=== PATIENT | female | born 1985 | race Caucasian/White ===

== ENCOUNTER 2019-10-09 10:58 | Emergency (ER) | payer OTHER ==
[2019-10-09] MEDS ORDERED: LACTATED RINGERS 1,000 ML IV ONE (11:33)
--- NOTE | 2019-10-09 11:44 | ED Headache ---
General Chief Complaint: Head/Cervical Problems Stated Complaint: HEADACHE Nursing Triage Note: headache for 4 days. States has no hx of headaches. Is constant and wraps around head. Is worse when she presses on her head. Has hx of high blood pressure. Nursing Sepsis Screen: No Definite Risk Source: patient Exam Limitations: no limitations History of Present Illness Date Seen by Provider: Oct 09, 2019 Time Seen by Provider: 11:24 Initial Comments Patient presents ER by private conveyance from home with chief complaint of a severe, worst headache of her life that starts in her neck and occiput wrapping around to the front in her eyes. It is constant, non-throbbing and hurts to touch her head. She has photophobia without phonophobia. No history of migraines or headaches. No fever chills cough shortness of breath. She does have nausea without vomiting. She is diabetic on metformin only and does not check her blood sugars. She has a history of hypertension on lisinopril and so she has not been fastidious about taking the medicine. She has been off of it for the past 3 days but started again today. She also has a history of high cholesterol but no history of coronary disease stroke. She's not having any weakness numbness double vision or blurry vision. She's not had any falls loss of control of her bowel or bladder or anesthesia/paresthesias. She's had her tubes tied in the past as well as hysterectomy several years ago. She's had her tonsils and adenoids out. Tylenol and ibuprofen have not helped with her headache. She did finally get some sleep with Benadryl and Excedrin last night however it did not change her headache. She has had poor sleep secondary to the pain. She's also had a sensation of rushing water through her ears since the headache started. Family medical history includes hypertension and diabetes but no early-onset coronary disease strokes or other significant history. [facility] with [facility] in [place] and has not seen anybody else about her headache since it started. Allergies and Home Medications Allergies Coded Allergies: No Known Drug Allergies (Unverified , 10/09/19) Home Medications Amoxicillin/Potassium Clav 1 Each Tablet, 1 EACH PO BID Prescribed by: ÁNGELA LESLIE on 10/09/19 1417 Butalb/Acetaminophen/Caffeine 1 Each Capsule, 1 EACH PO Q6H PRN for PAIN- BREAKTHROUGH Prescribed by: ÁNGELA LESLIE on 10/09/19 1416 Naproxen 500 Mg Tablet, 500 MG PO BID PRN for PAIN-BREAKTHROUGH Prescribed by: ÁNGELA LESLIE on 10/09/19 141 Promethazine HCl 25 Mg Tablet, 25 MG PO Q6H PRN for NAUSEA/VOMITING Prescribed by: ÁNGELA LESLIE on 10/09/19 1416 Patient Home Medication List Home Medication List Reviewed: Yes Review of Systems Review of Systems Constitutional: No chills, No diaphoresis Eyes: See HPI; Denies Blindness, Denies Blurred Vision, Denies Drainage; Photophobia Ears, Nose, Mouth, Throat: see HPI (tinnitus bilateral); denies ear pain Respiratory: No cough, No phlegm, No short of breath Cardiovascular: No chest pain, No edema, No Hx of Intervention, No palpitations Gastrointestinal: No abdominal pain, No constipation, No diarrhea; loss of appetite, nausea Genitourinary: No discharge, No dysuria, No frequency, No hematuria : No (hysterectomy) Musculoskeletal: No back pain; neck pain Skin: No pruritus, No rash Psychiatric/Neurological: Denies Anxiety, Denies Depressed All Other Systems Reviewed Negative Unless Noted: Yes Past Flpfnsj-Ptpomn-Utffka Hx Patient Social History Alcohol Use: Occasionally Uses Recreational Drug Use: No Smoking Status: Current Everyday Smoker Type Used: Cigarettes Recent Foreign Travel: No Contact w/Someone Who Travel: No Recent Infectious Disease Expo: No Physical Exam Vital Signs Vital Signs - First Documented 10/09/19 11:21 Temp 37.2 Pulse 83 Resp 16 B/P (MAP) 131/82 (98) Pulse Ox 99 Capillary Refill : Less Than 3 Seconds Height, Weight, BMI Height: '" Weight: lbs. oz. kg; BMI Method: General Appearance: WD/WN, mild distress HEENT: PERRL/EOMI, normal ENT inspection, TMs normal; No pharynx normal (oral mucosa is very dry) Neck: full range of motion, normal inspection Cardiovascular: normal peripheral pulses, regular rate, rhythm Respiratory: lungs clear, normal breath sounds, no respiratory distress, no accessory muscle use Back: normal inspection, other (midline vertebral tenderness C2 through C5 without paraspinous muscle spasm) Extremities: normal range of motion, non-tender, normal inspection, no pedal edema Psychiatric: alert, oriented x 3 (GCS 15) Crainal Nerves: normal hearing, normal speech, PERRL (4 mm bilateral, brisk) Coordination/Gait: normal finger to nose, normal gait Motor/Sensory: no motor deficit, no sensory deficit Reflexes: 2+ Bicep (R), 2+ Bicep (L), 2+ Knee (R); 3+ Knee (L) Skin: normal color, warm/dry Progress/Results/Core Measures Results/Orders Lab Results Laboratory Tests Test 10/09/19 11:32 10/09/19 11:41 Range/Units Glucometer 102 70-110 MG/DL White Blood Count 9.6 4.3-11.0 10^3/uL Red Blood Count 4.30 L 4.35-5.85 10^6/uL Hemoglobin 13.0 11.5-16.0 G/DL Hematocrit 38 35-52 % Mean Corpuscular Volume 89 80-99 FL Mean Corpuscular Hemoglobin 30 25-34 PG Mean Corpuscular Hemoglobin Concent 34 32-36 G/DL Red Cell Distribution Width 12.4 10.0-14.5 % Platelet Count 314 130-400 10^3/uL Mean Platelet Volume 10.1 7.4-10.4 FL Neutrophils (%) (Auto) 69 42-75 % Lymphocytes (%) (Auto) 23 12-44 % Monocytes (%) (Auto) 5 0-12 % Eosinophils (%) (Auto) 3 0-10 % Basophils (%) (Auto) 1 0-10 % Neutrophils # (Auto) 6.6 1.8-7.8 X 10^3 Lymphocytes # (Auto) 2.2 1.0-4.0 X 10^3 Monocytes # (Auto) 0.5 0.0-1.0 X 10^3 Eosinophils # (Auto) 0.2 0.0-0.3 10^3/uL Basophils # (Auto) 0.1 0.0-0.1 10^3/uL Erythrocyte Sedimentation Rate 4 0-20 MM/HR Sodium Level 137 135-145 MMOL/L Potassium Level 3.9 3.6-5.0 MMOL/L Chloride Level 103 98-107 MMOL/L Carbon Dioxide Level 23 21-32 MMOL/L Anion Gap 11 5-14 MMOL/L Blood Urea Nitrogen 16 7-18 MG/DL Creatinine 0.75 0.60-1.30 MG/DL Estimat Glomerular Filtration Rate > 60 BUN/Creatinine Ratio 21 Glucose Level 104 70-105 MG/DL Calcium Level 9.2 8.5-10.1 MG/DL Corrected Calcium 8.5-10.1 MG/DL Total Bilirubin 0.5 0.1-1.0 MG/DL Aspartate Amino Transf (AST/SGOT) 26 5-34 U/L Alanine Aminotransferase (ALT/SGPT) 27 0-55 U/L Alkaline Phosphatase 50 40-136 U/L C-Reactive Protein 0.07 <0.50 MG/DL Total Protein 7.3 6.4-8.2 GM/DL Albumin 4.7 H 3.2-4.5 GM/DL My Orders Orders - ÁNGELA LESLIE Accucheck Stat ONCE (10/09/19 11:30) Ct Angio Head/Neck (10/09/19 11:30) Ed Iv/Invasive Line Start (10/09/19 11:33) Lactated Ringers (Lr 1000 Ml Iv Solution (10/09/19 11:33) Ondansetron Injection (Zofran Injectio (10/09/19 11:45) Fentanyl Injection (Sublimaze Injection (10/09/19 11:45) Cbc With Automated Diff (10/09/19 11:33) Comprehensive Metabolic Panel (10/09/19 11:33) Crp Fs (10/09/19 11:33) Erythrocyte Sedimentation Rate (10/09/19 11:33) Iohexol Injection (Omnipaque 350 Mg/Ml 1 (10/09/19 12:00) Received Contrast (Hold Metformin- Contr (10/09/19 12:00) Sodium Chloride Flush (Catheter Flush Sy (10/09/19 12:00) Ns (Ivpb) (Sodium Chloride 0.9% Ivpb Bag (10/09/19 12:00) Hydromorphone Injection (Dilaudid Inject (10/09/19 12:45) Promethazine Injection (Phenergan Injec (10/09/19 14:30) Diphenhydramine Injection (Benadryl Inje (10/09/19 14:30) Ketorolac Injection (Toradol Injection) (10/09/19 14:30) Dexamethasone Injection (Decadron Inject (10/09/19 14:30) Medications Given in ED Current Medications Medications Dose Ordered Sig/Ileana Route Start Time Stop Time Status Last Admin Dose Admin Dexamethasone Sodium Phosphate 7 mg ONCE ONCE IV 10/09/19 14:30 10/09/19 14:31 DC 10/09/19 14:41 7 MG Diphenhydramine HCl 25 mg ONCE ONCE IVP 10/09/19 14:30 10/09/19 14:31 DC 10/09/19 14:41 25 MG Fentanyl Citrate 50 mcg ONCE ONCE IVP 10/09/19 11:45 10/09/19 11:46 MN 10/09/19 11:49 50 MCG Hydromorphone HCl 0.5 mg ONCE ONCE IV 10/09/19 12:45 10/09/19 12:46 MN 10/09/19 12:59 0.5 MG Iohexol 75 ml ONCE ONCE IV 10/09/19 12:00 10/09/19 12:01 MN 10/09/19 12:32 75 ML Ketorolac Tromethamine 30 mg ONCE ONCE IVP 10/09/19 14:30 10/09/19 14:31 MN 10/09/19 14:41 30 MG Lactated Ringer's 1,000 ml @ 0 mls/hr Q0M ONCE IV 10/09/19 11:33 10/09/19 11:36 MN 10/09/19 11:48 999 MLS/HR Ondansetron HCl 4 mg ONCE ONCE IVP 10/09/19 11:45 10/09/19 11:46 MN 10/09/19 11:49 4 MG Promethazine HCl 25 mg ONCE ONCE IVP 10/09/19 14:30 10/09/19 14:31 MN 10/09/19 14:41 25 MG Sodium Chloride 10 ml NEEDED PRN IV 10/09/19 12:00 10/09/19 12:32 10 ML Sodium Chloride 100 ml ONCE ONCE IV 10/09/19 12:00 10/09/19 12:01 MN 10/09/19 12:32 80 ML Vital Signs/I&O 10/09/19 11:21 Temp 37.2 Pulse 83 Resp 16 B/P (MAP) 131/82 (98) Pulse Ox 99 Blood Pressure Mean: 98 FSBG Bedside Testing Finger Stick Blood Glucose: 102 Progress Progress Note #1: Time: 11:41 Progress Note Novel onset of severe headache that is global and causing some neurologic symptoms of photophobia, new onset tinnitus and left-sided hyperreflexia. Small concern for catastrophic diagnoses includes subarachnoid hemorrhage, cerebral ischemia. Plan to get a CT angiogram of the head and neck which will allow us to look at a noncontrasted view for bleeds and then a contrasted view of the arteries. Plan to get labs. Accu-Chek was 102. Clinically she appears dehydrated despite not being tachycardic. Plan to give her a liter of lactated Ringer's and check labs. She urinated before she came but she denies any urinary symptoms and I doubt we can associate UTI with her current presentation anyway. Progress Note #2: Time: 14:08 Progress Note Imaging unremarkable. Labs unremarkable. She has some sinusitis and it probably would not hurt to do Augmentin as well as antihistamines to treat a sinus headache which is her most likely diagnosis. We are going to give her an IV dose of Toradol Benadryl and Phenergan. Plan to put her out on Augmentin. She is in agreement with the plan. Progress Note #3: Time: 15:14 Progress Note On reevaluation patient says her nausea is gone and her headache is significantly improved. She still receiving her Phenergan infusion. His symptoms this done were going to allow her to go home with Fioricet, Phenergan, Naprosyn and Augmentin. She can use Flonase and [id number] antihistamines. The patient is in agreement with this plan. Diagnostic Imaging Diagonstic Imaging: CT (angiogram) Plain Films/CT/US/NM/MRI: head (and neck) Comments NAME: [facility] REC#: [id number] PT STATUS: REG ER : 1985 PHYSICIAN: ÁNGELA LESLIE MD ADMIT DATE: 10/09/19/ER FS Draft Date of Exam:10/09/19 CT ANGIO HEAD/NECK PROCEDURE: CT angiography of the head and CT angiography of the neck with and without contrast. TECHNIQUE: Contiguous noncontrast images were obtained from the skull base through the vertex. After intravenous contrast administration, helical CT angiography of the neck was performed. Source data was reformatted into 3D MIP projections. Delayed post contrast acquisition was also obtained. Auto Exposure Controls were utilized during the CT exam to meet ALARA standards for radiation dose reduction. INDICATION: Severe headache and left-sided hyperreflexia. COMPARISON: No prior studies are available for comparison. FINDINGS: The head CT demonstrates the ventricles and sulci to be within normal limits. No sulcal effacement or midline shift is identified. No acute intra-axial or extra-axial hemorrhage is detected. Delayed post contrast imaging is without abnormal enhancing lesion. There is some mild mucosal thickening of the ethmoid air cells. There is also significant mucosal thickening in the bilateral maxillary sinuses, greatest on the right. The CT angiographic portion of the study demonstrates the bilateral common carotid arteries to be widely patent. The carotid bifurcations are unremarkable. The bilateral internal carotid arteries are widely patent. There is normal perfusion in the anterior, middle, and posterior cerebral artery territories. No filling defects are seen. No large branch occlusion is identified. No definite aneurysm is detected. The basilar artery is widely patent. The vertebral arteries are codominant and unremarkable. IMPRESSION: 1. Essentially unremarkable CT angiogram of the head and neck. No large branch occlusion, thromboembolism, or evidence of aneurysm is identified. 2. Paranasal sinus disease, greatest involving the right maxillary sinus. Dictated on workstation # [id number] Dict: 10/09/19 1252 Trans: 10/09/19 1303 [id number] Interpreted by: KELLEN BRAY MD Electronically signed by: Reviewed: Reviewed by Me Departure Impression Primary Impression: Sinus headache Disposition: 01 HOME, SELF-CARE Condition: Stable Departure-Patient Inst. Decision time for Depature: 14:09 Referrals: NO,LOCAL PHYSICIAN (PCP/Family) Primary Care Physician Patient Instructions: Sinus Headache (DC) Add. Discharge Instructions: While there is nothing dangerous going on with your headache there does seem to be some inflammation in your sinuses which could be consistent with an infection. Plan to put you on Zyrtec/cetirizine 1 tablet daily. This is OTC You can use 1-2 tablets of Benadryl in addition to naproxen 500 mg twice daily. A prescription for naproxen has been sent in. Do not combine this with ibuprofen, Advil, Aleve. Tylenol 650 mg every 8 hours as necessary for headache or pain. Zebutal 1 tablet every 6 hours as necessary for breakthrough pain. Phenergan 1 tablet every 6 hours as necessary for nausea. Augmentin 1 tablet twice a day for the next 10 days for sinusitis. Flonase, fluticasone nasal steroid. Apply 1 puff to each nostril twice daily for the next week. This is available [id number]. Return to the nearest ER if you begin to experience visual changes, weakness or falling, infusion or other worrisome symptoms such as fever. All discharge instructions reviewed with patient and/or family. Voiced understanding. Scripts Amoxicillin/Potassium Clav (Augmentin 875-125 Tablet) 1 Each Tablet 1 EACH PO BID for 10 Days, #20 TAB 0 Refills Prov: ÁNGELA LESLIE 10/09/19 Naproxen (Naprosyn) 500 Mg Tablet 500 MG PO BID PRN for PAIN-BREAKTHROUGH for 7 Days, #14 TAB 0 Refills Prov: ÁNGELA LESLIE 10/09/19 Promethazine HCl (Promethazine Tablet) 25 Mg Tablet 25 MG PO Q6H PRN for NAUSEA/VOMITING, #15 TAB 0 Refills Prov: ÁNGELA LESLIE 10/09/19 Butalb/Acetaminophen/Caffeine (Zebutal 50-325-40 mg Capsule) 1 Each Capsule 1 EACH PO Q6H PRN for PAIN-BREAKTHROUGH, #15 CAP 0 Refills Prov: ÁNGELA LESLIE 10/09/19 Work/School Note: Work Release Form Date Seen in the Emergency Department: Oct 09, 2019 Return to Work: Oct 13, 2019 Restrictions: No Restrictions ÁNGELA LESLIE Oct 09, 2019 11:44
[2019-10-09] MEDS ORDERED: fentaNYL INJECTION 100 MCG/2 ML AMP IVP ONE (11:45)
[2019-10-09] MEDS ORDERED: ONDANSETRON 4 MG/2 ML (SDV) Z0FRAN IVP ONE (11:45)
[2019-10-09 11:53] LABS: BASOPHILS # (AUTO) 0.1 10^3/uL (0.0-0.1); BASOPHILS % (AUTO) 1 % (0-10); EOSINOPHILS # (AUTO) 0.2 10^3/uL (0.0-0.3); EOSINOPHILS % (AUTO) 3 % (0-10); HEMATOCRIT 38 % (35-52); LYMPHOCYTES # (AUTO) 2.2 X 10^3 (1.0-4.0); LYMPHOCYTES % (AUTO) 23 % (12-44); MEAN CORPUSCULAR HEMOGLOBIN 30 PG (25-34); MEAN CORPUSCULAR HGB CONC 34 G/DL (32-36); MEAN CORPUSCULAR VOLUME 89 FL (80-99); MEAN PLATELET VOLUME 10.1 FL (7.4-10.4); MONOCYTES # (AUTO) 0.5 X 10^3 (0.0-1.0); MONOCYTES % (AUTO) 5 % (0-12); NEUTROPHILS # (AUTO) 6.6 X 10^3 (1.8-7.8); NEUTROPHILS % (AUTO) 69 % (42-75); PLATELET COUNT 314 10^3/uL (130-400); RED CELL DISTRIBUTION WIDTH 12.4 % (10.0-14.5); WHITE BLOOD COUNT 9.6 10^3/uL (4.3-11.0)
[2019-10-09] MEDS ORDERED: IOHEXOL 350 MG/ML 100 ML (OMNIPAQUE 350) VIAL IV ONE (12:00)
[2019-10-09] MEDS ORDERED: CATHETER FLUSH 10 ML SYR IV PRN (12:00)
[2019-10-09] MEDS ORDERED: NS 100 ML (IVPB) BAG IV ONE (12:00)
[2019-10-09] MEDS ORDERED: HOLD METFORMIN - RECEIVED CONTRAST 20 ML VIAL IV SCH (12:00)
[2019-10-09 12:08] LABS: ERYTHROCYTE SEDIMENTATION RATE 4 MM/HR (0-20)
[2019-10-09 12:12] LABS: ALANINE AMINOTRANSFERASE 27 U/L (0-55); ALBUMIN 4.7 GM/DL (3.2-4.5); ALKALINE PHOSPHATASE 50 U/L (40-136); BILIRUBIN,TOTAL 0.5 MG/DL (0.1-1.0); BUN/CREATININE RATIO 21; CALCIUM 9.2 MG/DL (8.5-10.1); CARBON DIOXIDE 23 MMOL/L (21-32); CHLORIDE 103 MMOL/L (98-107); CREATININE SERUM 0.75 MG/DL (0.60-1.30); GFR ESTIMATED > 60; GLUCOSE 104 MG/DL (70-105); POTASSIUM 3.9 MMOL/L (3.6-5.0); SODIUM 137 MMOL/L (135-145); TOTAL PROTEIN 7.3 GM/DL (6.4-8.2)
--- OUTSIDE RECORDS SUMMARY | 2019-10-09 12:40 | XMS REPORT | Continuity of Care Document ---
Demographics Preferred Language Unknown Marital Status Unknown Zoroastrianism Affiliation Unknown Race Unknown Ethnic Group Unknown Author Organization Unknown Address Unknown Phone Unavailable Allergies There is no data. Medications There is no data. Problems There is no data. Procedures There is no data. Results Test Result Range Capillary blood glucose measurement by g lucometer (mass/volume) - 10/09/19 11:32 Capillary blood glucose measurement by glucometer (mas s/volume) 102 mg/dL 70-110 Complete blood count (CBC) with automate d white blood cell (WBC) differential - 10/09/19 11:41 Blood leukocytes automated count (number/volume) 9.6 10*3/uL 4.3-11.0 Blood erythrocytes automated count (number/volume) 4.30 10*6/uL 4.35-5.85 Venous blood hemoglobin measurement (mass/volume) 13.0 g/dL 11.5-16.0 Blood hematocrit (volume fraction) 38 % 35-52 Automated erythrocyte mean corpuscular volume 89 [ foz_us] 80-99 Automated erythrocyte mean corpuscular h emoglobin (mass per erythrocyte) 30 pg 25-34 Automated erythrocyte mean corpuscular h emoglobin concentration measurement (mass/volume) 34 g/dL 32-36 Automated erythrocyte distribution width ratio 12. 4 % 10.0- 14.5 Automated blood platelet count (count/volume) 314 10*3/uL 130-400 Automated blood platelet mean volume measurement 10.1 [foz_us] 7.4-10.4 Automated blood neutrophils/100 leukocytes 69 % 42-75 Automated blood lymphocytes/100 leukocytes 23 % 12-44 Blood monocytes/100 leukocytes 5 % 0-12 Automated blood eosinophils/100 leukocytes 3 % 0-10 Automated blood basophils/100 leukocytes 1 % 0-10 Blood neutrophils automated count (number/volume) 6.6 10*3 1.8-7.8 Blood lymphocytes automated count (number/volume) 2.2 10*3 1.0-4.0 Blood monocytes automated count (number/volume) 0. 5 10*3 0.0-1.0 Automated eosinophil count 0.2 10*3/uL 0 .0-0.3 Automated blood basophil count (count/volume) 0.1 10*3/uL 0.0-0.1 Erythrocyte sedimentation rate by disha gren method - 10/09/19 11:41 Erythrocyte sedimentation rate by westergren method 4 mm 0- 20 Comprehensive metabolic panel - 10/09/19 11:41 Serum or plasma sodium measurement (moles/volume) 137 mmol/L 135-145 Serum or plasma potassium measurement (moles/volume) 3.9 mmol/L 3.6-5.0 Serum or plasma chloride measurement (moles/volume) 103 mmol/L 98-107 Carbon dioxide 23 mmol/L 21-32 Serum or plasma anion gap determination (moles/volume) 11 mmol/L 5-14 Serum or plasma urea nitrogen measurement (mass/volume ) 16 mg/dL 7-18 Serum or plasma creatinine measurement (mass/volume) 0.75 mg/dL 0.60-1.30 Serum or plasma urea nitrogen/creatinine mass ratio 21 NRG Serum or plasma creatinine measurement w ith calculation of estimated glomerular filtration rate > NRG Serum or plasma glucose measurement (mass/volume) 104 mg/dL 70-105 Serum or plasma calcium measurement (mass/volume) 9.2 mg/dL 8.5-10.1 Serum or plasma total bilirubin measurement (mass/volu me) 0.5 mg/dL 0.1-1.0 Serum or plasma alkaline phosphatase isidra surement (enzymatic activity/volume) 50 U/L 40-136 Serum or plasma aspartate aminotransfera se measurement (enzymatic activity/volume) 26 U/L 5-34 Serum or plasma alanine aminotransferase measurement (enzymatic activity/volume) 27 U/L 0-55 Serum or plasma protein measurement (mass/volume) 7.3 g/dL 6.4-8.2 Serum or plasma albumin measurement (mass/volume) 4.7 g/dL 3.2-4.5 CRP FS - 10/09/19 11:41 CRP FS 0.07 mg/dL <0.50 Encounters ACCT No. Visit Date/Time Discharge Status Pt. Type Provider Facility Loc./Unit Complaint [id number] 10/09/2019 11:40:00 Document Registration
[2019-10-09] MEDS ORDERED: HYDROmorphone 2 MG/ML VIAL (DILAUDID) IV ONE (12:45)
--- NOTE | 2019-10-09 13:03 | Diagnostic Imaging Report ---
PROCEDURE: CT angiography of the head and CT angiography of the neck with and without contrast. TECHNIQUE: Contiguous noncontrast images were obtained from the skull base through the vertex. After intravenous contrast administration, helical CT angiography of the neck was performed. Source data was reformatted into 3D MIP projections. Delayed post contrast acquisition was also obtained. Auto Exposure Controls were utilized during the CT exam to meet ALARA standards for radiation dose reduction. INDICATION: Severe headache and left-sided hyperreflexia. COMPARISON: No prior studies are available for comparison. FINDINGS: The head CT demonstrates the ventricles and sulci to be within normal limits. No sulcal effacement or midline shift is identified. No acute intra-axial or extra-axial hemorrhage is detected. Delayed post contrast imaging is without abnormal enhancing lesion. There is some mild mucosal thickening of the ethmoid air cells. There is also significant mucosal thickening in the bilateral maxillary sinuses, greatest on the right. The CT angiographic portion of the study demonstrates the bilateral common carotid arteries to be widely patent. The carotid bifurcations are unremarkable. The bilateral internal carotid arteries are widely patent. There is normal perfusion in the anterior, middle, and posterior cerebral artery territories. No filling defects are seen. No large branch occlusion is identified. No definite aneurysm is detected. The basilar artery is widely patent. The vertebral arteries are codominant and unremarkable. IMPRESSION: 1. Essentially unremarkable CT angiogram of the head and neck. No large branch occlusion, thromboembolism, or evidence of aneurysm is identified. 2. Paranasal sinus disease, greatest involving the right maxillary sinus. Dictated by: Dictated on workstation # [id number]
[2019-10-09] MEDS ORDERED: BUTA1CAP44 PO (14:16)
[2019-10-09] MEDS ORDERED: PROM25TA14 PO (14:16)
[2019-10-09] MEDS ORDERED: NAPR-1071 PO (14:16)
[2019-10-09] MEDS ORDERED: AMOX-358 PO (14:17)
[2019-10-09] MEDS ORDERED: KETOROLAC 30 MG/ML VIAL IVP ONE (14:30)
[2019-10-09] MEDS ORDERED: diphenhydrAMINE 50 MG/ML INJ (BENADRYL) IVP ONE (14:30)
[2019-10-09] MEDS ORDERED: PROMETHAZINE INJ 25 MG/ML (PHENERGAN) AMP IVP ONE (14:30)
[2019-10-09 16:10] VITALS: BP 125/80
== END 2019-10-09 15:23 | disposition home or self-care (01) ==
LOC: ER FS 11:00
DX: R51 Headache (principal); E11.9 Type 2 diabetes mellitus without complications; I10 Essential (primary) hypertension; F17.210 Nicotine dependence, cigarettes, uncomplicated
CPT/HCPCS: 36415; 70496; 70498; 80053; 82962; 85025; 85652; 86141